=== PATIENT | male | born 1955 | race Caucasian/White ===

== ENCOUNTER 2019-05-04 13:11 | Day surgery (SDC) | payer OTHER ==
[2019-05-04] MEDS ORDERED: PROPOFOL 60 ML (14:17)
[2019-05-04] MEDS ORDERED: LIDOCAINE 2% (SDV) 5 ML INJ (14:17)
== END 2019-05-04 15:34 | disposition home or self-care (01) ==
LOC: GIL 13:11
DX: Z85.038 Personal history of other malignant neoplasm of large intestine (principal); D12.8 Benign neoplasm of rectum; K57.30 Diverticulosis of large intestine without perforation or abscess without bleeding; K64.8 Other hemorrhoids; K29.70 Gastritis, unspecified, without bleeding; I10 Essential (primary) hypertension
CPT/HCPCS: 43239; 88305